=== PATIENT | female | born 2000 | race African-American/Black ===

== ENCOUNTER 2022-11-23 23:22 | Emergency (ER) | payer SELFPAY ==
[~2022-11-23] VITALS: Ht 170.2 cm; Wt 59.0 kg
[2022-11-24 00:10] VITALS: BP 127/72
== END 2022-11-24 02:30 | disposition left against medical advice (07) ==
LOC: ER 23:22
DX: Z53.21 Procedure and treatment not carried out due to patient leaving prior to being seen by health care provider (principal)
CPT/HCPCS: 71045; 99281